=== PATIENT | male | born 1980 | race Two or more races ===

== ENCOUNTER 2021-03-07 17:03 | Inpatient (IN) | payer MEDICAID, OTHER ==
[~2021-03-07] VITALS: Ht 165.1 cm; Wt 99.0 kg
[2021-03-07] MEDS ORDERED: ACETAMINOPHEN 500 MG TAB PO ONE (17:15)
[2021-03-07] MEDS ORDERED: AZITHROMYCIN 500MG/ 250ML 250 ML IV ONE (19:30)
[2021-03-07] MEDS ORDERED: DexAMETHasone SOD PHOS 10MG/1ML VIAL INJ IV ONE (19:30)
[2021-03-07 22:20] LABS: Basophils # (auto) 0 10 ^3/uL (0-0.2); Basophils % (auto) 0.8 % (0.0-2.0); Eosinophils # (auto) 0 10 ^3/uL (0-0.8); Eosinophils % (auto) 0.4 % (0.0-7.0); Hematocrit 44.3 % (41.0-53.0); Hemoglobin 14.9 g/dL (13.5-17.5); Lymphocytes # (auto) 1.6 10 ^3/uL (0.4-5.4); Lymphocytes % (auto) 31.4 % (10.0-50.0); Mean Corpuscular Hemoglobin 29.8 pg (28.0-32.0); Mean Corpuscular Hgb Conc. 33.7 g/dL (32.0-36.0); Mean Corpuscular Volume 88.4 fL (80.0-100.0); Monocytes # (auto) 0.6 10 ^3/uL (0-1.3); Monocytes % (auto) 10.9 % (0.0-12.0); Neutrophils # (auto) 2.9 10 ^3/uL (1.6-8.6); Neutrophils % (auto) 56.5 % (37.0-80.0); Nucleated Red Blood Cells % 0.2 %; Red Blood Cells 5.01 10^6/uL (4.5-5.90); Red Cell Distribution Width 13.2 % (11.8-14.3); White Blood Cell 5.1 10^3/uL (4.4-10.8)
[2021-03-07] MEDS ORDERED: ACETAMINOPHEN 500 MG TAB PO PRN (22:30)
[2021-03-07] MEDS ORDERED: DOCUSATE SOD 100 MG CAP PO PRN (22:30)
[2021-03-07] MEDS ORDERED: HYDROcodone-ACET 5/325MG TAB PO PRN (22:30)
[2021-03-07] MEDS ORDERED: ONDANSETRON HCL 4 MG/2 ML VIAL IV PRN (22:30)
[2021-03-07 22:40] LABS: Albumin 3.7 g/dL (3.4-5.0); Calcium 8.2 mg/dL (8.5-10.1); Potassium 4.1 mmol/L (3.5-5.1)
[2021-03-07 22:43] LABS: BUN/Creatinine Ratio 12.3; Bilirubin, Total 0.6 mg/dL (0.2-1.0); Total Protein 7.5 g/dL (6.4-8.2)
[2021-03-07] MEDS ORDERED: NITROGLYCERIN 0.4 MG SL TAB SL PRN (23:45)
[2021-03-07] MEDS ORDERED: MORPHINE SULFATE INJECTION 2 MG/ML SYRG IV PRN (23:45)
[2021-03-08 00:51] LABS: Urine Bacteria FEW /hpf (None Seen); Urine Blood Negative /uL (Negative); Urine Mucus FEW (None Seen); Urine WBC <1 /hpf (0 - 3)
[2021-03-08 03:04] VITALS: BP 115/72
[2021-03-08 05:00] VITALS: BP 122/81
[2021-03-08] MEDS: SODIUM CHLOR 0.9% PF (SALINE LOCK) 10ML VIAL/SYR IV SCH ×3 (06:00→22:02)
[2021-03-08] MEDS: ALBUTEROL SULF HFA 90MCG INH 200DOSE IN PRN ×2 (06:13→19:31)
[2021-03-08] MEDS: BUDESONIDE (INHALATION) 180 MCG IH IN SCH ×2 (06:14→19:31)
[2021-03-08 07:53] LABS: Basophils # (auto) 0 10 ^3/uL (0-0.2); Eosinophils # (auto) 0 10 ^3/uL (0-0.8); Hematocrit 43.4 % (41.0-53.0); Lymphocytes # (auto) 0.6 10 ^3/uL (0.4-5.4); Lymphocytes % (auto) 19.7 % (10.0-50.0); Mean Corpuscular Hemoglobin 30.1 pg (28.0-32.0); Mean Corpuscular Hgb Conc. 34.5 g/dL (32.0-36.0); Mean Corpuscular Volume 87.3 fL (80.0-100.0); Monocytes # (auto) 0.3 10 ^3/uL (0-1.3); Monocytes % (auto) 9.3 % (0.0-12.0); Neutrophils # (auto) 2.2 10 ^3/uL (1.6-8.6); Nucleated Red Blood Cells % 0.3 %; Red Blood Cells 4.98 10^6/uL (4.5-5.90); Red Cell Distribution Width 13.2 % (11.8-14.3); White Blood Cell 3.2 10^3/uL (4.4-10.8)
[2021-03-08 08:10] LABS: Albumin 3.6 g/dL (3.4-5.0); Potassium 4.5 mmol/L (3.5-5.1)
[2021-03-08 08:17] LABS: BUN/Creatinine Ratio 13.7; Bilirubin, Total 0.6 mg/dL (0.2-1.0)
[2021-03-08 09:00] VITALS: BP 125/75
[2021-03-08] MEDS: MULTIPLE VITAMIN TAB PO SCH (10:00)
[2021-03-08] MEDS: ENOXAPARIN SOD 40 MG/0.4 ML SYRINGE SC SCH ×2 (10:00→22:02)
[2021-03-08] MEDS ORDERED: FAMOTIDINE (10MG/ML) 2ML VL IV SCH (10:00)
[2021-03-08] MEDS: CHOLECALCIFEROL (VITD3) 2,000 UNIT CAP/TAB PO SCH (10:01)
[2021-03-08] MEDS: ZINC SULFATE 220mg CAP or TAB PO SCH (10:01)
[2021-03-08] MEDS: ASCORBIC ACID 1,000 MG TAB PO SCH (10:01)
[2021-03-08] MEDS ORDERED: FUROSEMIDE 40 MG/4 ML VIAL IV ONE (10:30)
[2021-03-08] MEDS ORDERED: guaiFENesin-DM 100/10mg/5ml SYR PO PRN (10:30)
[2021-03-08] MEDS ORDERED: REMDESIVIR PER PHARMACY 0 ML IV SCH (10:30)
[2021-03-08 13:05] VITALS: BP 115/67
[2021-03-08] MEDS ORDERED: REMDESIVIR 200 MG in NS 210ml LOADING DOSE ADULT IV ONE (15:00)
[2021-03-08 17:00] VITALS: BP 105/71
[2021-03-08 22:00] VITALS: BP 122/69
[2021-03-08] MEDS: DexAMETHasone SOD PHOS 10MG/1ML VIAL INJ IV SCH (22:01)
[2021-03-08] MEDS: AZITHROMYCIN 500MG/ 250ML 250 ML IV SCH (22:02)
[2021-03-09 05:00] VITALS: BP 150/74
[2021-03-09] MEDS: SODIUM CHLOR 0.9% PF (SALINE LOCK) 10ML VIAL/SYR IV SCH ×3 (05:35→21:09)
[2021-03-09 08:00] VITALS: BP 113/56
[2021-03-09 09:00] VITALS: BP 113/56
[2021-03-09] MEDS: ZINC SULFATE 220mg CAP or TAB PO SCH (09:33)
[2021-03-09] MEDS: MULTIPLE VITAMIN TAB PO SCH (09:33)
[2021-03-09] MEDS: FUROSEMIDE 40 MG/4 ML VIAL IV SCH (09:33)
[2021-03-09] MEDS: CHOLECALCIFEROL (VITD3) 2,000 UNIT CAP/TAB PO SCH (09:34)
[2021-03-09] MEDS: ENOXAPARIN SOD 40 MG/0.4 ML SYRINGE SC SCH ×2 (09:34→21:08)
[2021-03-09] MEDS: IVERMECTIN 3 MG TAB PO SCH (09:34)
[2021-03-09] MEDS: ASCORBIC ACID 1,000 MG TAB PO SCH (09:34)
[2021-03-09] MEDS: BUDESONIDE (INHALATION) 180 MCG IH IN SCH ×2 (10:04→22:00)
[2021-03-09] MEDS: ALBUTEROL SULF HFA 90MCG INH 200DOSE IN PRN ×2 (10:05→23:28)
[2021-03-09 10:29] LABS: Potassium 4.4 mmol/L (3.5-5.1)
[2021-03-09 10:35] LABS: Albumin 3.6 g/dL (3.4-5.0); BUN/Creatinine Ratio 19.1; Bilirubin, Total 0.6 mg/dL (0.2-1.0); Calcium 8.2 mg/dL (8.5-10.1); Total Protein 7.2 g/dL (6.4-8.2)
[2021-03-09 13:00] VITALS: BP 116/57
[2021-03-09] MEDS: REMDESIVIR 100mg 100 MG in SODIUM CHL 0.9% 230 ML IV SCH (15:49)
[2021-03-09 17:00] VITALS: BP 112/55
[2021-03-09] MEDS: DexAMETHasone SOD PHOS 10MG/1ML VIAL INJ IV SCH (21:08)
[2021-03-09] MEDS: AZITHROMYCIN 500MG/ 250ML 250 ML IV SCH (21:09)
[2021-03-09 21:30] VITALS: BP 113/56
[2021-03-10 05:00] VITALS: BP 105/59
[2021-03-10] MEDS: SODIUM CHLOR 0.9% PF (SALINE LOCK) 10ML VIAL/SYR IV SCH ×3 (05:23→20:55)
[2021-03-10 07:09] LABS: Albumin 3.4 g/dL (3.4-5.0); Calcium 8.1 mg/dL (8.5-10.1); Potassium 4.4 mmol/L (3.5-5.1)
[2021-03-10 07:14] LABS: BUN/Creatinine Ratio 21.6; Bilirubin, Total 0.7 mg/dL (0.2-1.0); Total Protein 6.9 g/dL (6.4-8.2)
[2021-03-10 08:00] VITALS: BP 108/67
[2021-03-10] MEDS: ALBUTEROL SULF HFA 90MCG INH 200DOSE IN PRN ×2 (08:43→20:32)
[2021-03-10] MEDS: BUDESONIDE (INHALATION) 180 MCG IH IN SCH ×2 (08:44→19:36)
[2021-03-10] MEDS: ASCORBIC ACID 1,000 MG TAB PO SCH (09:29)
[2021-03-10] MEDS: IVERMECTIN 3 MG TAB PO SCH (09:29)
[2021-03-10] MEDS: MULTIPLE VITAMIN TAB PO SCH (09:29)
[2021-03-10] MEDS: ZINC SULFATE 220mg CAP or TAB PO SCH (09:29)
[2021-03-10] MEDS: CHOLECALCIFEROL (VITD3) 2,000 UNIT CAP/TAB PO SCH (09:30)
[2021-03-10] MEDS: ENOXAPARIN SOD 40 MG/0.4 ML SYRINGE SC SCH ×2 (09:30→20:56)
[2021-03-10] MEDS: FUROSEMIDE 40 MG/4 ML VIAL IV SCH (09:54)
[2021-03-10 13:08] VITALS: BP 108/67
[2021-03-10] MEDS: REMDESIVIR 100mg 100 MG in SODIUM CHL 0.9% 230 ML IV SCH (16:00)
[2021-03-10 18:00] VITALS: BP 102/54
[2021-03-10] MEDS: AZITHROMYCIN 500MG/ 250ML 250 ML IV SCH (20:55)
[2021-03-10] MEDS: DexAMETHasone SOD PHOS 10MG/1ML VIAL INJ IV SCH (20:55)
[2021-03-10 22:00] VITALS: BP 96/69
[2021-03-11 05:00] VITALS: BP 106/64
[2021-03-11] MEDS: SODIUM CHLOR 0.9% PF (SALINE LOCK) 10ML VIAL/SYR IV SCH ×2 (05:17→15:47)
[2021-03-11 05:39] LABS: Basophils # (auto) 0 10 ^3/uL (0-0.2); Basophils % (auto) 0.2 % (0.0-2.0); Eosinophils # (auto) 0 10 ^3/uL (0-0.8); Hematocrit 43.4 % (41.0-53.0); Lymphocytes % (auto) 21.4 % (10.0-50.0); Mean Corpuscular Hemoglobin 30.1 pg (28.0-32.0); Mean Corpuscular Hgb Conc. 34.4 g/dL (32.0-36.0); Mean Corpuscular Volume 87.5 fL (80.0-100.0); Monocytes # (auto) 0.5 10 ^3/uL (0-1.3); Monocytes % (auto) 10.6 % (0.0-12.0); Neutrophils # (auto) 3.2 10 ^3/uL (1.6-8.6); Neutrophils % (auto) 67.8 % (37.0-80.0); Nucleated Red Blood Cells % 0.3 %; Red Blood Cells 4.96 10^6/uL (4.5-5.90); White Blood Cell 4.7 10^3/uL (4.4-10.8)
[2021-03-11 05:59] LABS: Albumin 3.4 g/dL (3.4-5.0); Calcium 8.3 mg/dL (8.5-10.1)
[2021-03-11 06:04] LABS: Bilirubin, Total 0.8 mg/dL (0.2-1.0); Total Protein 7.4 g/dL (6.4-8.2)
[2021-03-11 08:00] VITALS: BP 116/66
[2021-03-11 09:00] VITALS: BP 116/66
[2021-03-11] MEDS: FUROSEMIDE 40 MG/4 ML VIAL IV SCH (09:34)
[2021-03-11] MEDS: ENOXAPARIN SOD 40 MG/0.4 ML SYRINGE SC SCH (09:34)
[2021-03-11] MEDS: IVERMECTIN 3 MG TAB PO SCH (09:35)
[2021-03-11] MEDS: ZINC SULFATE 220mg CAP or TAB PO SCH (09:36)
[2021-03-11] MEDS: CHOLECALCIFEROL (VITD3) 2,000 UNIT CAP/TAB PO SCH (09:36)
[2021-03-11] MEDS: MULTIPLE VITAMIN TAB PO SCH (09:36)
[2021-03-11] MEDS: ASCORBIC ACID 1,000 MG TAB PO SCH (09:36)
[2021-03-11 13:00] VITALS: BP 121/70
[2021-03-11] MEDS: REMDESIVIR 100mg 100 MG in SODIUM CHL 0.9% 230 ML IV SCH (15:52)
[2021-03-11 17:00] VITALS: BP 100/62
[2021-03-11] MEDS: BUDESONIDE (INHALATION) 180 MCG IH IN SCH (19:12)
[2021-03-11 22:00] VITALS: BP 101/65
[2021-03-12] MEDS: SODIUM CHLOR 0.9% PF (SALINE LOCK) 10ML VIAL/SYR IV SCH ×4 (00:41→21:47)
[2021-03-12] MEDS: DexAMETHasone SOD PHOS 10MG/1ML VIAL INJ IV SCH ×2 (00:41→21:47)
[2021-03-12] MEDS: AZITHROMYCIN 500MG/ 250ML 250 ML IV SCH ×2 (00:41→21:48)
[2021-03-12] MEDS: ENOXAPARIN SOD 40 MG/0.4 ML SYRINGE SC SCH ×3 (00:42→21:48)
[2021-03-12 05:00] VITALS: BP 97/60
[2021-03-12] MEDS: ALBUTEROL SULF HFA 90MCG INH 200DOSE IN PRN ×2 (07:44→21:17)
[2021-03-12] MEDS: BUDESONIDE (INHALATION) 180 MCG IH IN SCH ×2 (07:44→21:16)
[2021-03-12 08:15] VITALS: BP 109/60
[2021-03-12 08:31] LABS: Potassium 4.3 mmol/L (3.5-5.1)
[2021-03-12 08:47] LABS: Albumin 3.4 g/dL (3.4-5.0); BUN/Creatinine Ratio 18.9; Bilirubin, Total 0.9 mg/dL (0.2-1.0); Calcium 8.4 mg/dL (8.5-10.1); Total Protein 6.8 g/dL (6.4-8.2)
[2021-03-12 09:00] VITALS: BP 109/60
[2021-03-12] MEDS: MULTIPLE VITAMIN TAB PO SCH (10:24)
[2021-03-12] MEDS: IVERMECTIN 3 MG TAB PO SCH (10:24)
[2021-03-12] MEDS: FUROSEMIDE 40 MG/4 ML VIAL IV SCH (10:24)
[2021-03-12] MEDS: ZINC SULFATE 220mg CAP or TAB PO SCH (10:24)
[2021-03-12] MEDS: ASCORBIC ACID 1,000 MG TAB PO SCH (10:25)
[2021-03-12] MEDS: CHOLECALCIFEROL (VITD3) 2,000 UNIT CAP/TAB PO SCH (10:25)
[2021-03-12 13:00] VITALS: BP 120/62
[2021-03-12] MEDS: REMDESIVIR 100mg 100 MG in SODIUM CHL 0.9% 230 ML IV SCH (15:12)
[2021-03-12 17:00] VITALS: BP 106/57
[2021-03-12 22:00] VITALS: BP 105/60
[2021-03-13 05:00] VITALS: BP 98/62
[2021-03-13] MEDS: SODIUM CHLOR 0.9% PF (SALINE LOCK) 10ML VIAL/SYR IV SCH ×2 (05:25→14:00)
[2021-03-13] MEDS: ALBUTEROL SULF HFA 90MCG INH 200DOSE IN PRN (06:13)
[2021-03-13] MEDS: BUDESONIDE (INHALATION) 180 MCG IH IN SCH (06:13)
[2021-03-13 09:00] VITALS: BP 109/65
[2021-03-13] MEDS ORDERED: ASCO10003 PO (09:56)
[2021-03-13] MEDS ORDERED: DEX4T PO (09:56)
[2021-03-13] MEDS ORDERED: ZINC220T6 PO (09:56)
[2021-03-13] MEDS ORDERED: CHOL1CAP47 PO (09:56)
[2021-03-13] MEDS ORDERED: ALBUAER3 IN (09:56)
[2021-03-13] MEDS ORDERED: DEXT1SYP9 PO (09:56)
[2021-03-13] MEDS ORDERED: ASPI1TAB20 PO (09:56)
[2021-03-13] MEDS: ENOXAPARIN SOD 40 MG/0.4 ML SYRINGE SC SCH (10:00)
[2021-03-13] MEDS: MULTIPLE VITAMIN TAB PO SCH (10:00)
[2021-03-13] MEDS: FUROSEMIDE 40 MG/4 ML VIAL IV SCH (10:00)
[2021-03-13] MEDS: ASCORBIC ACID 1,000 MG TAB PO SCH (10:00)
[2021-03-13] MEDS: CHOLECALCIFEROL (VITD3) 2,000 UNIT CAP/TAB PO SCH (10:00)
[2021-03-13] MEDS: ZINC SULFATE 220mg CAP or TAB PO SCH (10:00)
[2021-03-13] MEDS: IVERMECTIN 3 MG TAB PO SCH (10:00)
[2021-03-13 13:00] VITALS: BP 112/72
[2021-03-13 14:52] VITALS: BP 112/72
== END 2021-03-13 16:15 | disposition home or self-care (01) | DRG 137 ==
LOC: ER 17:03 → OVERFLOW 23:33 → WEST WING 03-08 01:19
PROVIDERS: ADMIT Nurse Practitioner Family; ATTEND Internal Medicine
PROC: XW033E5 Introduction of Remdesivir Anti-infective into Peripheral Vein, Percutaneous Approach, New Technology Group 5 (ICD-10-PCS; principal; 2021-03-08)
DX: U07.1 COVID-19 (principal); J96.01 Acute respiratory failure with hypoxia; J12.82 Pneumonia due to coronavirus disease 2019; R65.10 Systemic inflammatory response syndrome (SIRS) of non-infectious origin without acute organ dysfunction; D89.839 Cytokine release syndrome, grade unspecified; R73.9 Hyperglycemia, unspecified
CPT/HCPCS: 36415; 36600; 71045; 71046; 80053; 81001; 82728; 82805; 83036; 83615; 83735; 84702; 85025; 85379; 86141; 87426; 93005; 94640; 96365; 96375; G0378; J1100; J3490